=== PATIENT | female | born 1945 | race Caucasian/White ===

== ENCOUNTER → 2022-01-07 13:26 | Outpatient (CLI) | payer MEDICARE, BC, SELFPAY ==
[2022-01-07 14:41] LABS: Hemoglobin A1C% w Est Avg Glu 5.5 % (4.0-6.0)
[2022-01-07 14:49] LABS: Add Manual Diff / Slide Review NO; Basophils Absolute Auto 0 /uL (0-100); Basophils Percent Auto 0.6 % (0-2); Eosinophils Absolute Auto 100 /uL (0-450); Eosinophils Percent Auto 2.3 % (2-4); Hematocrit 37.7 % (36-46); Hemoglobin 12.8 g/dL (12.0-16.0); Lymphocytes Absolute Auto 1700 /uL (1100-4500); Lymphocytes Percent Auto 26.7 % (25-40); Mean Corpuscular HGB Conc 33.9 % (30-36); Mean Corpuscular Hemoglobin 31.6 PG (26-34); Mean Corpuscular Volume 93.3 fL (80-100); Monocytes Absolute Auto 500 /uL (0-900); Monocytes Percent Auto 7.3 % (3-14); Neutrophils Absolute Auto 4000 /uL (1500-7000); Neutrophils Percent Auto 63.1 % (50-75); Platelet Count 188 X10^3/uL (150-400); Red Blood Cell Count 4.04 X10^6/uL (4.0-5.2); Red Cell Distribution Width 14.1 % (11.6-14.8); White Blood Cell Count 6.3 X10^3/uL (4.5-11.0)
[2022-01-07 14:51] LABS: BUN Creatinine Ratio 30.6 (6-22); Blood Urea Nitrogen 22 mg/dL (7-17); Calcium 9.1 mg/dL (8.4-10.2); Carbon Dioxide 33 mmol/L (22-32); Chloride 101 mmol/L (98-107); Estimated Glomerular Filt Rate > 60 mL/min (>60); Glucose 104 mg/dL (80-110); HEMOLYSIS < 15 (0-50); Sodium 140 mmol/L (137-145)
[2022-01-07 15:45] LABS: Appearance Urine UA CLEAR; Bilirubin Urine UA NEGATIVE (NEGATIVE); Color Urine UA YELLOW; Glucose Urine UA NEGATIVE (Negative); Ketones Urine UA NEGATIVE (NEGATIVE); Leukocyte Esterase Urine UA NEGATIVE (NEGATIVE); Nitrite Urine UA NEGATIVE (Negative); Occult Blood Urine UA NEGATIVE (Negative); Protein Urine UA TRACE (Negative); Urobilinogen Urine UA 0.2 E.U./dL (0.2)
[2022-01-07 16:06] LABS: pH Urine UA 8.5 (4.5-8.0)
[2022-01-07 16:07] LABS: Bacteria Urine None Seen; Culture Indicated Urine Cult Not Indicated; RBC Urine 0-1/HPF (0-5/HPF); Squamous Epithelial Cell Urine 0-1 /HPF (0-5/HPF); WBC Urine 0-1/HPF (0-5/HPF)
== END ==
PROVIDERS: Family Provider Orthopaedic Surgery; PCP Family Medicine; Referring Provider Orthopaedic Surgery; Visit Provider Orthopaedic Surgery
DX: Z01.818 Encounter for other preprocedural examination (principal); R73.9 Hyperglycemia, unspecified; Z01.812 Encounter for preprocedural laboratory examination; N39.0 Urinary tract infection, site not specified
CPT/HCPCS: 36415; 80048; 81001; 83036; 85025; 93005; 93010

== ENCOUNTER 2023-05-22 12:17 | Emergency (ER) | payer MEDICARE, BC, SELFPAY ==
[2023-05-22 12:18] VITALS: BP 193/88; PULSE 77; RESP 17; TEMP 36.6; O2SAT 99; BMI 24.2
--- NOTE | 2023-05-22 12:35 | DI.RAD.S_ITS ---
PROCEDURE: XR KNEE LT 3V INDICATIONS: knee pain and swelling TECHNIQUE: 3 views of the knee were acquired. COMPARISON: None. FINDINGS: Bones: Patient is status post prior medial femoral tibial compartment arthroplasty. Alignment of left knee is anatomic. No gross hardware loosening or failure. No fractures or dislocations. Osteoarthritic changes are noted in lateral femoral tibial compartment and patellofemoral compartment. No suspicious bony lesions. Soft tissues: Moderate to large suprapatellar joint effusion is seen. No suspicious soft tissue calcifications. IMPRESSION: Prior medial femoral tibial compartment arthroplasty. No gross hardware loosening or failure. No acute fracture or dislocation. Moderate to large joint effusion. Moderate lateral femoral tibial compartment and patellofemoral compartment osteoarthritis. Dictated by: Bran Delarosa M.D. on 05/22/2023 at 13:03 Approved by: Bran Delarosa M.D. on 05/22/2023 at 13:03
--- NOTE | 2023-05-22 12:41 | DI.US.S_ITS ---
PROCEDURE: US PERIPH VENOUS LOW EXTREM LT INDICATIONS: left leg swelling behind knee TECHNIQUE: Real-time imaging, as well as color and pulse Doppler interrogation, were performed of the lower extremity deep veins from the inguinal ligament to the popliteal fossa, with documentation of the visualized calf veins. COMPARISON: None. FINDINGS: The common femoral, femoral, popliteal, and the visualized calf veins are normally compressible, and free of intraluminal thrombus. Color and pulse Doppler demonstrate normal phasic intraluminal flow. There is normal augmentation response to distal compression maneuver. IMPRESSION: No evidence of DVT in visualized left lower extremity veins. Dictated by: Bran Delarosa M.D. on 05/22/2023 at 13:34 Approved by: Bran Delarosa M.D. on 05/22/2023 at 13:35
--- NOTE | 2023-05-22 12:55 | PC.NURSE ---
Pain and swelling to distal side of left knee and back of knee.
--- NOTE | 2023-05-22 13:08 | ED_ITS ---
HPI - Extremity Problem <Rip Javed PA-C - Last Filed: 05/22/23 16:02> General Chief complaint: Extremity Problem,Nontraumatic Stated complaint: something wrong with knee swollen cant bend t-14 Time Seen by Provider: 05/22/23 13:01 Source: patient Mode of arrival: Ambulatory History of Present Illness HPI Narrative: This is a 78 old female presents emergency department due to left knee pain for the last week. She was not recall any acute injuries. She states that she does go the gym daily but does not recall any acute injuries. Does report some swelling to the lateral border of her left knee. Denies any fevers, decreased range of motion, or any other concerning signs or symptoms. Related Data Home Medications Medication Instructions Recorded Confirmed aspirin 81 mg tablet,delayed 81 mg PO DAILY 05/22/23 05/22/23 release Allergies Allergy/AdvReac Type Severity Reaction Status Date / Time Sulfa (Sulfonamide Allergy Verified 05/22/23 12:41 Antibiotics) Review of Systems <Rip Javed PA-C - Last Filed: 05/22/23 16:02> Review of Systems Narrative: GENERAL: Denies chills, fatigue, malaise, fever, sweats. HEENT: Denies sinus pain, ear pain, sore throat, difficulty swallowing, dizziness. RESPIRATORY: Denies dyspnea, cough, wheezing, hemoptysis, sputum. CARDIOVASCULAR: Denies chest pain, palpitations, orthopnea, edema, GASTROINTESTINAL: Denies nausea, vomiting, abdominal pain, diarrhea, constipation, melena. : Denies dysuria, frequency, incontinence, hematuria, urinary retention. MUSCULOSKELETAL: Reports left knee pain and swelling SKIN: Denies rash, skin lesions, or other NEUROLOGIC: Denies weakness, headache, numbness, change in speech, confusion, seizures, incoordination. PSYCHIATRIC: No concerning psychosocial issues. 12 point review of systems is negative except for those stated above Patient History <Rip Javed PA-C - Last Filed: 05/22/23 16:02> Social History Smoking Status: Never smoker Smoking Status: Never smoker alcohol intake frequency: other Substance Use Type: does not use Exam <ENEIDA Acosta Last Filed: 05/22/23 16:02> Narrative Exam Narrative: GENERAL: Well-developed patient, in mild distress. HEAD: Atraumatic. Normocephalic. EYES: Pupils equal round and reactive. Extraocular motions intact. No scleral icterus. No injection or drainage. ENT: Nose without bleeding, purulent drainage. Throat without erythema, tonsillar hypertrophy or exudate. Airway patent. NECK: Trachea midline. Non tender CARDIOVASCULAR: Regular rate and rhythm without murmurs, gallops, or rubs. RESPIRATORY: Clear to auscultation. Breath sounds equal bilaterally. No wheezes, rales, or rhonchi. GASTROINTESTINAL: Abdomen soft, non-tender, nondistended. EXTREMITIES: Mild tenderness to palpation to the lateral aspect of the left knee. Small amount of edema noted to the lateral aspect. No joint stiffness. Maintains good range of motion. Neurovascularly intact throughout. No tenderness to popliteal space. BACK: Nontender without deformity or crepitance. No flank tenderness. NEURO: AOx3. SKIN: No rash or erythema of visible areas Initial Vital Signs Initial Vital Signs: Vital Signs Temperature 98 F 05/22/23 12:18 Pulse Rate 77 05/22/23 12:18 Respiratory Rate 17 05/22/23 12:18 Blood Pressure 193/88 H 05/22/23 12:18 Pulse Oximetry 99 05/22/23 12:18 Oxygen Delivery Method Room Air 05/22/23 12:18 <Preston Witt MD - Last Filed: 06/05/23 12:55> Initial Vital Signs Initial Vital Signs: Vital Signs Temperature 98 F 05/22/23 12:18 Pulse Rate 77 05/22/23 12:18 Respiratory Rate 17 05/22/23 12:18 Blood Pressure 193/88 H 05/22/23 12:18 Pulse Oximetry 99 05/22/23 12:18 Oxygen Delivery Method Room Air 05/22/23 12:18 Course <Rip Javed PA-C - Last Filed: 05/22/23 16:02> Orders Ordered: ED Orders 05/22/23 12:35 XR knee LT 3V Stat 05/22/23 12:41 US periph venous low extrem lt Stat Vital Signs Vital signs: Vital Signs - 8 hr 05/22/23 12:18 Temperature 98 F Pulse Rate 77 Respiratory Rate 17 Blood Pressure 193/88 H Pulse Oximetry 99 Oxygen Delivery Method Room Air <Preston Witt MD - Last Filed: 06/05/23 12:55> Orders Ordered: ED Orders 05/22/23 12:35 XR knee LT 3V Stat 05/22/23 12:41 US periph venous low extrem lt Stat Vital Signs Vital signs: Vital Signs - 8 hr 05/22/23 12:18 Temperature 98 F Pulse Rate 77 Respiratory Rate 17 Blood Pressure 193/88 H Pulse Oximetry 99 Oxygen Delivery Method Room Air MDM - Extremity (Nontraumatic) <Rip Javed PA-C - Last Filed: 05/22/23 16:02> Imaging Data Extremity x-ray #1: Radiologist's Impression: [address] [address] XRay Report Signed Patient: Cecy Roland MR#: [id number] : 1945 Acct:[id number] Age/Sex: 78 / F Date of Service: 05/22/23 Loc: ED Accession Number: [id number] Procedure: XR knee LT 3V Ordering Provider: Rip Javed P.A-C PROCEDURE: XR KNEE LT 3V INDICATIONS: knee pain and swelling TECHNIQUE: 3 views of the knee were acquired. COMPARISON: None. FINDINGS: Bones: Patient is status post prior medial femoral tibial compartment arthroplasty. Alignment of left knee is anatomic. No gross hardware loosening or failure. No fractures or dislocations. Osteoarthritic changes are noted in lateral femoral tibial compartment and patellofemoral compartment. No suspicious bony lesions. Soft tissues: Moderate to large suprapatellar joint effusion is seen. No suspicious soft tissue calcifications. IMPRESSION: Prior medial femoral tibial compartment arthroplasty. No gross hardware loosening or failure. No acute fracture or dislocation. Moderate to large joint effusion. Moderate lateral femoral tibial compartment and patellofemoral compartment osteoarthritis. Dictated by: Bran Delarosa M.D. on 05/22/2023 at 13:03 Approved by: Bran Delarosa M.D. on 05/22/2023 at 13:03 US - DVT: Radiologist's Impression: [address] [address] Ultrasound Report Signed Patient: Cecy Roland MR#: [id number] : 1945 Acct:[id number] Age/Sex: 78 / F Date of Service: 05/22/23 Loc: ED Accession Number: [id number] Procedure: US periph venous low extrem lt Ordering Provider: Rip Javed P.A-C PROCEDURE: US PERIP VENOUS LOW EXTREM LT INDICATIONS: left leg swelling behind knee TECHNIQUE: Real-time imaging, as well as color and pulse Doppler interrogation, were performed of the lower extremity deep veins from the inguinal ligament to the popliteal fossa, with documentation of the visualized calf veins. COMPARISON: None. FINDINGS: The common femoral, femoral, popliteal, and the visualized calf veins are normally compressible, and free of intraluminal thrombus. Color and pulse Doppler demonstrate normal phasic intraluminal flow. There is normal augmentation response to distal compression maneuver. IMPRESSION: No evidence of DVT in visualized left lower extremity veins. Dictated by: Bran Delarosa M.D. on 05/22/2023 at 13:34 Approved by: Bran Delarosa M.D. on 05/22/2023 at 13:35 MDM Narrative Medical decision making narrative: MDM * differential diagnosis includes but not limited to osteoarthritis, fracture, ligament injury, septic arthritis, DVT * Prior records reviewed: Patient has not been to this emergency department in the past * My lab interpretation: None obtained * My imgaing interpretation: Knee x-ray shows evidence of effusion but no fracture. DVT ultrasound negative. * Clinical Decision Rules/Scores evaluated: None * Independent discussions with: None ED Course: This is a 78-year-old female presents emergency department complaining of acute onset left knee pain. She is not recall any acute injuries. On exam there was nothing concerning for any kind of septic arthritis or cellulitis. Ultrasound was ordered which was negative for DVT. X-ray negative for fractures or change in her hardware from her previous knee surgery. Did show a moderate to large effusion. Recommended rest, ice, compression, elevation and follow up with the established orthopedist for further evaluation and management. Shared Decision Making: Discussed plan with patient who is comfortable with the plan Social Considerations: None Disposition: Discharged to home Discharge Plan Departure Patient Disposition: Home Clinical Impression: Injury of knee Activity Restrictions/Additional Instructions: Thank you for coming to the [facility] Emergency Department today. As we discussed the knee x-ray showed no evidence of fractures or any movement of the hardware you having your knee. It did show a joint effusion which is fluid buildup usually happening after some kind of knee injury. I recommend elevation, ice, compression, and rest. You may use the knee immobilizer if it seems to help with your joint discomfort. You may use up to a 1000 mg of Tylenol every 8 hours. You may also use 400 mg ibuprofen every 6 hours as needed for the pain. You may use these concurrently. I also recommend the other therapies we discussed such as Biofreeze, and diclofenac gel. I do recommend he follow up with the primary care provider and orthopedist for possible MRI for further evaluation. I hope you feel better soon. Please follow up with your primary care provider within a week if your symptoms continue. If you do not have a primary care provider please contact the [facility] Resource line at [phone]. They will ask some questions about your medical history and help you get set up with a provider in the community. Prescriptions: No Action aspirin [Aspir-81] 81 mg Tablet,Delayed Release (Dr/Ec) 81 mg PO DAILY Referrals: Preston Wright DO [Primary Care Provider] - Stand Alone Forms: Patient Portal/API ED Sign-out <Preston Witt MD - Last Filed: 06/05/23 12:55> Cosign ED Attending Joshature Attestation: I was immediately available in the department for consultation. This documentation has been reviewed and I agree with assessment and plan. Supervised by Preston Witt MD
== END 2023-05-22 14:12 | disposition home or self-care (01) ==
PROVIDERS: Emergency Provider Physician Assistant Medical; Family Provider Orthopaedic Surgery; PCP Family Medicine
DX: S89.92XA Unspecified injury of left lower leg, initial encounter (principal); X58.XXXA Exposure to other specified factors, initial encounter
CPT/HCPCS: 73562; 93971; 99281; 99283

== ENCOUNTER → 2023-09-08 13:05 | Outpatient (CLI) | payer MEDICARE, BC, SELFPAY ==
--- NOTE | 2023-09-08 | DI.MRI.S_ITS ---
PROCEDURE: MR KNEE LT WO CON INDICATIONS: Presence of left artificial knee joint TECHNIQUE: Noncontrast sagittal PD fast spin echo and T2 fast spin echo with fat saturation, sagittal 3-D FLASH with fat saturation; coronal T1 spin echo and PD fast spin echo with fat saturation, and axial PD fast spin echo with fat saturation through the knee. COMPARISON: [facility], MR, KNEE WITHOUT CONTRAST, 05/12/2015, 19:49. [facility], CR, XR KNEE LT 3V, 05/22/2023, 12:46. [facility], CR, XR KNEE 4+ VIEWS LEFT, 08/30/2023, 16:10. FINDINGS: Image quality: Metal artifact is seen related to the medial compartment arthroplasty including areas of signal void, signal pile-up, and geometric distortion despite the use of metal artifact reduction techniques. Diagnostic information is obtained. Anterior cruciate ligament: Anterior cruciate ligament is not visualized and is likely chronically torn. Posterior cruciate ligament: Intact. Medial collateral ligament: Intact. Lateral collateral ligament: Intact. Lateral meniscus: Complex degenerative tearing is seen in the lateral meniscus with extrusion of the meniscal body beyond the femorotibial joint line. The anterior horn is not well visualized. Medial and lateral tendons: The semimembranosus tendon insertions appear intact. Visualized portions of the pes anserinus tendons appear normal. The popliteus tendon is intact. Iliotibial band appears normal. Anterior structures: The quadriceps and patellar tendons appear intact. No patellar subluxation. No femoral trochlear dysplasia or ventral trochlear prominence. Scarring is seen in the infrapatellar fat pad. Bones and cartilage: Postsurgical changes from a medial unicompartmental knee arthroplasty. No adjacent osseous edema is seen. Osteochondral fracture is seen at the far posterior portion of the lateral femoral condyle measuring approximately 13 x 15 mm with depression of the articular surface by up to 3 mm. Overlying cartilage fissuring is seen along the more anterior margin. There is a small amount of fluid deep to the osteochondral fragment that may indicate instability. Surrounding osseous edema is present. No additional area of trabecular bone injury is seen. Patellofemoral compartment demonstrates diffuse moderate to high-grade partial-thickness cartilage thinning and irregularity. Soft tissues: Moderate to large joint effusion is present. There is a large medial popliteal cyst with adjacent edema that may indicate prior cyst rupture. Ossified intracystic loose body is seen measuring up to 11 mm in size. The musculature surrounding the knee is normal in bulk. IMPRESSION: 1. Osteochondral fracture at the far posterior portion of the lateral femoral condyle with depression of the articular surface by up to 3 mm. Overlying cartilage fissuring is seen with fluid undercutting the in situ osteochondral fragment, which may indicate the fragment is unstable. Moderate surrounding osseous edema. 2. Postsurgical changes from medial unicompartmental arthroplasty. No acute hardware complication is seen. 3. 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 4. Complex degenerative tearing and maceration of the lateral meniscus, most notably at the anterior horn. There is extrusion of the meniscal body. 5. 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 6. Moderate to large joint effusion. Large medial popliteal cyst is seen with signs of prior cyst rupture as well as an 11 mm ossified intracystic loose body. Approved by: Michael Lopez M.D. on 09/08/2023 at 20:40
== END ==
LOC: MRI 13:08
PROVIDERS: Family Provider Orthopaedic Surgery; PCP Family Medicine; Referring Provider Orthopaedic Surgery; Visit Provider Orthopaedic Surgery
DX: S72.422A Displaced fracture of lateral condyle of left femur, initial encounter for closed fracture (principal); S83.272A Complex tear of lateral meniscus, current injury, left knee, initial encounter; S83.512A Sprain of anterior cruciate ligament of left knee, initial encounter; M22.42 Chondromalacia patellae, left knee; M23.42 Loose body in knee, left knee; M25.462 Effusion, left knee; M71.22 Synovial cyst of popliteal space [Baker], left knee; Z96.652 Presence of left artificial knee joint
CPT/HCPCS: 73721

== ENCOUNTER → 2023-09-25 11:05 | Outpatient (CLI) | payer MEDICARE, BC, SELFPAY ==
[2023-09-25 12:27] LABS: Add Manual Diff / Slide Review NO; Basophils Absolute Auto 0 /uL (0-100); Basophils Percent Auto 0.5 % (0-2); Eosinophils Absolute Auto 100 /uL (0-450); Hematocrit 38.6 % (36-46); Hemoglobin 12.9 g/dL (12.0-16.0); Lymphocytes Absolute Auto 1700 /uL (1100-4500); Lymphocytes Percent Auto 29.6 % (25-40); Mean Corpuscular HGB Conc 33.5 % (30-36); Mean Corpuscular Hemoglobin 31.6 PG (26-34); Mean Corpuscular Volume 94.3 fL (80-100); Monocytes Absolute Auto 500 /uL (0-900); Monocytes Percent Auto 8.2 % (3-14); Neutrophils Absolute Auto 3500 /uL (1500-7000); Neutrophils Percent Auto 59.7 % (50-75); Platelet Count 177 X10^3/uL (150-400); Red Blood Cell Count 4.09 X10^6/uL (4.0-5.2); Red Cell Distribution Width 14.1 % (11.6-14.8); White Blood Cell Count 5.8 X10^3/uL (4.5-11.0)
[2023-09-25 12:55] LABS: Erythrocyte Sedimentation Rate 10 MM/HR (0-20)
[2023-09-25 13:01] LABS: Hemoglobin A1C% w Est Avg Glu 5.4 % (4.0-6.0)
[2023-09-25 13:09] LABS: BUN Creatinine Ratio 29.3 (6-22); Blood Urea Nitrogen 17 mg/dL (7-17); Calcium 9.1 mg/dL (8.4-10.2); Carbon Dioxide 29 mmol/L (22-32); Chloride 104 mmol/L (98-107); Estimated Glomerular Filt Rate > 60 mL/min (>60); Glucose 89 mg/dL (80-110); HEMOLYSIS < 15 (0-50); Potassium 3.7 mmol/L (3.4-5.1); Sodium 139 mmol/L (137-145)
[2023-09-25 13:26] LABS: Appearance Urine UA CLEAR; Bilirubin Urine UA NEGATIVE (NEGATIVE); Color Urine UA YELLOW; Glucose Urine UA NEGATIVE (Negative); Ketones Urine UA NEGATIVE (NEGATIVE); Leukocyte Esterase Urine UA NEGATIVE (NEGATIVE); Nitrite Urine UA NEGATIVE (Negative); Occult Blood Urine UA NEGATIVE (Negative); Protein Urine UA NEGATIVE (Negative); Specific Gravity Urine UA <=1.005 (1.000-1.035); Urobilinogen Urine UA 0.2 E.U./dL (0.2)
[2023-09-25 13:29] LABS: pH Urine UA 5.5 (4.5-8.0)
[2023-09-25 13:41] LABS: Bacteria Urine None Seen; Culture Indicated Urine Cult Not Indicated; RBC Urine None Seen (0-5/HPF); Squamous Epithelial Cell Urine None Seen (0-5/HPF); Urine Volume 10mL (spun); WBC Urine None Seen (0-5/HPF)
== END ==
PROVIDERS: Family Provider Orthopaedic Surgery; PCP Family Medicine; Referring Provider Orthopaedic Surgery; Visit Provider Orthopaedic Surgery
DX: Z01.818 Encounter for other preprocedural examination (principal); R73.9 Hyperglycemia, unspecified; Z01.812 Encounter for preprocedural laboratory examination; N39.0 Urinary tract infection, site not specified
CPT/HCPCS: 36415; 80048; 81001; 83036; 85025; 85651; 93005

== ENCOUNTER 2023-11-02 06:19 | Inpatient (IN) | payer MEDICARE, BC, SELFPAY ==
[2023-10-23 09:35] VITALS: BMI 24.0
[2023-11-02] VITALS (13 sets, daily range): BP systolic 113–156; BP diastolic 46–104; PULSE 65–85; RESP 12–20; TEMP 36.1–36.2; O2SAT 92–100; BMI 23.3
--- NOTE | 2023-11-02 06:45 | DI.RAD.S_ITS ---
PROCEDURE: XR KNEE LT 1TO2V INDICATIONS: TKA TECHNIQUE: 2 view(s) of the knee acquired. COMPARISON: [facility], , XR KNEE LT 3V, 05/22/2023, 12:46. FINDINGS: Bones: Patient is status post knee joint arthroplasty. Hardware components are in expected positions. Visualized bony structures are intact. Soft tissues: Overlying postoperative changes are noted. IMPRESSION: Expected post-operative appearance of a knee arthroplasty. Dictated by: Justus Smith M.D. on 11/02/2023 at 16:07 Approved by: Justus Smith M.D. on 11/02/2023 at 16:07
[2023-11-02] MEDS: ACETAMINOPHEN 325 MG TABLET 975 MG PO (06:48)
[2023-11-02] MEDS: LACTATED RINGERS 1,000 ML 42 ML IV ×2 (06:48→09:59)
[2023-11-02] MEDS: CELECOXIB 200 MG CAPSULE 400 MG PO (06:58)
[2023-11-02] MEDS: VANCOMYCIN 1,000 MG/200 ML PIGGYBACK 200 MG IV (06:58)
--- NOTE | 2023-11-02 07:10 | P.OP_ITS ---
Operative Date/Time/Diagnoses Date of procedure: 11/02/23 Time of procedure: 08:00 Pre-op diagnosis: left knee osteochondral injury lateral femoral condyle, left knee medial uni, left knee OA Post-op diagnosis: same Procedure & Clinicians Procedure: Revision left total knee arthroplasty Same procedure as scheduled: Yes Indications: The patient has had progressively worsening left knee pain with a history of a left knee medial unicompartment arthroplasty. She did well for awhile but then developed incapacitating lateral knee pain. She had very extensive workup to rule out an infection which was all negative and a total body bone scan which did not suggest loosening. 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 She failed extensive conservative treatment and is brought to the operating room for revision. Non-operative management has failed and the patient has requested revision total knee replacement. The risks, benefits and alternatives to surgery were discussed with the patient prior to proceeding. Risks discussed included, but were not limited to, failure to relieve pain, stiffness, infection, nerve damage, deep venous thrombosis, pulmonary embolism, stroke, coma, heart attack, permanent paralysis and , as well as the potential need for eventual revision of the prosthetic. Surgeon: Regina Garcia Exterminator Helper Termite: Young Alcazar Anesthesia Type: General and Peripheral nerve block Operative Notes Findings: Osteonecrosis of the lateral femoral condyle, no evidence of infection, no evidence of unicompartment loosening, significant osteoporosis Closure Type: primary Specimen(s): other (Multiple cultures) Prosthetic devices, grafts, tissues, transplants, or devices: Garcia and Nephew size 4 journey BCS 2 femur, size 3 tibia, 35 x 7-1/2 mm patella, 12 x 100 mm tibial stem, size 13 polyethylene Estimated Blood Loss (mL): 250 Blood products transfused: none Tourniquet time (min): 120 Procedure in detail: The patient was seen in the pre-operative area, where the patient identified the left knee as the operative site and this was marked with my initials. The patient received pre-operative antibiotics, and was taken to the operating room and placed on the operative table in the supine position. After satisfactory anesthesia, a time broker out was performed. The left leg was encircled with a tourniquet about the proximal thigh, and the leg was prepared from the toes to the tourniquet with ChloroPrep in the usual fashion and draped through sterile drapes. The leg was elevated and exsanguinated with Eschmark bandage and the tourniquet inflated to [250] mmHg pressure. A PA was used during the procedure and was essential for intraoperative retraction and safe implantation of the components. The knee was approached through an approximately 18 cm incision centered over the patella and carried into the knee through a medial parapatellar arthrotomy. Portion of the medial and lateral meniscus was resected. Soft tissue was carefully mobilized around the patella the patella was measured with a caliper. Bone was resected from the patella and the patellar height was reconstituted with up an appropriate sized patellar component. A cover was then placed on the patella. A small amount of additional medial scar and soft tissue around the medial unicompartment arthroplasty and lateral meniscus was resected. Intraoperative cultures were sent including fluid, synovium and both tibial and femoral cultures after I removed the unicompartment components. I partially freed around the femoral and tibial component and then placed Cori Pins in the femur and tibia for navigation. The knee was meticulously mapped including doing special points for the epicondyle as well as the residual bone after component extraction. A stressed and nonstress range of motion was defined. We mapped the knee meticulously with a unicompartment arthroplasty in place. Next a combination of a TTS saw and multiple hand tools were used to meticulously remove the unicompartment arthroplasty without bone loss. The distal femoral cut was made. It was carefully navigated and it was noted that there did appear to be adequate distal femoral bone for good stability on the medial femoral condyle and lateral femoral condyle. The 5 in 1 block was placed and it was navigated during insertion. It looked like acceptable rotation and there was good stability on distal femoral cut and there was some resection of the posterior medial femoral condyle. There was no significant bony defects. It looked like an appropriate distal femoral cut and the cut was made without difficulty. The rotation was assessed and the appropriate size femoral guide was placed on the distal femur and finishing cuts were made. There was no evidence of notching. The posterior osteophytes and soft tissues were then removed. The posterior capsule was injected with part of a mixture of 60 ml 0.25% Marcaine mixed with 20 ml Exparel for post operative pain control. The remainder of this mixture was injected into the capsule and subcutaneous tissues during cement curing. The tibia was prepared by placing a PEG hole in the lateral bone and then carefully navigating the guide and pinning it to the tibia. It looked like I had under cut or really not done a good skim cut on the medial bone and I made a plan to drop the tibial resection 1 mm in order to have better medial tibial bony contact. The additional mm of bone was resected using the bone bur all function on the robotic navigation system. The rotation was assessed. The patient was placed in extension residual medial and lateral meniscus as well as any residual bone was carefully resected. [No] additional tibia was resected. Hemostasis was achieved especially posteriorly. Additional local was injected into the posterior capsule. The femoral component was trial was placed and the notch was finished. Trial tibial and femoral components were then placed and the knee placed through a range of motion. Range of motion was [0-130], with good stability throughout the range. The trials were then removed, and the tibia was finished. She had very soft bone overall. I decided to do 100 mm stem on the tibia in order to improve the stability of the tibial component. A 12 x 100 stem was used and the bone was prepared for that. The bone was prepared with pulsatile lavage, and dried with a sponge. Cement was applied and the final prosthetics placed. Excess cement was removed during and after cement curing. A brief Betadine soak was performed. After confirming there was no extruded cement posteriorly, the final tibial insert was placed. The knee was copiously irrigated and the tourniquet deflated. Hemostasis was obtained with the Bovie cautery. The capsule was closed with interrupted # 1 Vicryl suture. The subcutaneous layer was closed with barbed sutures, and the skin with a running 3-0 V-Lock suture and skin flores. A nicole dressing was applied and the patient was taken to recovery having tolerated the procedure well. Complications: none Post-operative Condition: stable Disposition: Acute Care Plan for aftercare: The patient will be maintained on a standard total knee replacement protocol with weight bearing as tolerated. The patient will receive aspirin and sequential compression devices for DVT prophylaxis. The patient will be discharged home when safe for the home environment.
--- NOTE | 2023-11-02 07:10 | PM.PREOP ---
Pre-operative Note Interval Note History & Physical reviewed/Exam performed by Physician: Yes Changes to H&P: No
[2023-11-02] MEDS: CEFAZOLIN 2 GM/100 ML PREMIX 100 ML IV ×2 (08:00→16:20)
[2023-11-02] MEDS: TRANEXAMIC ACID 1,000 MG VIAL 1000 MG INJ ×2 (08:10→11:05)
[2023-11-02] MEDS: BUPIVACAINE 0.25% (PF) 60 ML, EPINEPHrine 0.3 MG INJ (08:44)
[2023-11-02] MEDS: BUPIVACAINE LIPOSOME 266 MG/20 ML VIAL INJ (08:44)
--- NOTE | 2023-11-02 08:49 | SUR.OPER ---
Supine on padded OR bed. Pillow under head, arms secured on padded armboards <90 degree abduction. Safety belt across torso. Non-operative leg secured with tape over blanket over lower leg. Operative leg secured in DeMayo/Sukhjinder/Nathe positioner. Foam padded brace at thigh of operative leg.
[2023-11-02] MEDS: LACTATED RINGERS 1,000 ML 100 ML IV (12:41)
--- NOTE | 2023-11-02 16:27 | PT.IIE ---
Current Diagnoses Idiopathic aseptic necrosis of unspecified femur (11/02/23) Presence of unspecified artificial knee joint (11/02/23) Surgery Performed Operation Date: 11/02/23 07:45 Actual Procedures p Total Knee Arthroplasty Revision - Robot uni to total(Left) - Regina Garcia MD Surgical History (Last Reviewed 11/02/23 @ 06:46 by María Chung, RN) History of gynecologic surgery (1997) Hx of appendectomy (2009) Hx of arthroscopy of left knee (2008) Hx of bilateral cataract extraction Hx of dilation and curettage (2014) S/P left unicompartmental knee replacement (2021) S/P right unicompartmental knee replacement (2014) Medical History (Last Reviewed 11/02/23 @ 06:46 by María Chung, RN) Aseptic necrosis of lateral femoral condyle BCC (basal cell carcinoma) Depression HTN (hypertension) Hypoglycemia Osteoporosis PAF (paroxysmal atrial fibrillation) Sensitive skin SVT (supraventricular tachycardia) Physical Therapy Inpatient Evaluation/Re-Eval M1 PT/OT-IP Prior Functional Status Start: 11/02/23 15:31 Freq: NEEDED Status: Active Protocol: Document 11/02/23 15:30 MB (Rec: 11/02/23 16:26 MB [id number]) Medical Review Prior Functional Status Medical History Reviewed Yes Diet/Fluid Consistency Regular Communication WNLs Mobility and Gait I Activities of Daily Living and IADL's I Social History Household Members spouse Living Arrangements House Number of Floors (Floors) Two Floors Number of Stairs To Enter/Railing? Pt can stay on main level and no steps to enter Home Environment Standard Height Toilet,Walk in Shower,Tub/Shower Home Equipment Front Wheel Walker Employment Status Retired M2 PT-IP Current Condition Start: 11/02/23 15:31 Freq: NEEDED Status: Active Protocol: Document 11/02/23 15:30 MB (Rec: 11/02/23 16:26 MB [id number]) Physical Therapy Current Condition Current Condition Evaluation Date 11/02/23 Treatment Diagnosis L TKA M3 PT-IP Subjective Start: 11/02/23 15:31 Freq: NEEDED Status: Active Protocol: Document 11/02/23 15:30 MB (Rec: 11/02/23 16:26 MB [id number]) Subjective Physical Therapy Visit Type Type Initial Evaluation Visit Start Time 15:30 Visit Stop Time 16:15 Number of GEOMORPHOLOGIST Visits 0 Physical Therapy Visit Comments Patient Comments Pt states she is doing well and does not have pain on pain medications. Therapy Pain Assessment Pain When Pain Assessed At Rest Pain Present Pain Present Denied Pain M4 PT-IP Mobility and Gait Start: 11/02/23 15:31 Freq: NEEDED Status: Active Protocol: Document 11/02/23 15:30 MB (Rec: 11/02/23 16:26 MB [id number]) PT-Bed Mobility Assessment Supine to Sit Supine to Sit Independent Scooting Scooting to Edge of Bed Independent Scooting Up and Down in Bed Independent PT-Transfer Assessment Sit to and From Stand Sit to and from Stand Independent,Standby Assistance Equipment Transfer Assistive Device Gait Belt,Front Wheeled Walker Orthotic/Prosthetic Devices or Brace: No Transfers Transfer Destination Chair,Toilet Transfer Technique Ambulation Transfer Ability Level of Assist Independent,Standby Assistance Comments Mobility Comments Pt mobilizes well and is not dizzy. BP and HR in LUE are: supine 106/52, 63; standing 125/53, 75 and PT cannot check again as pt needs to go to the restroom. Pt tends to push up from the RW Gait Assessment Gait Gait Assistance Required: Independent,Standby Assistance Distance (Feet) 150 Able to Maintain Weight Bearing Status Yes During Gait Assistive Devices Assistive Device Gait Belt,Front Wheeled Walker Orthotic/Prosthetic Devices or Brace: No Gait Deviations General Gait Pattern Antalgic,Decreased Stride Length,Decreased Feet Clearance,Flexed Trunk Factors Limiting Gait Function Factors Limiting Gait Function Decreased Strength,Limited Range of Motion Comments Gait Comments Pt mobilizes well post-op, slow isabel and she has step- through gait pattern PT-Balance Assessment Sitting Balance and Reactions Static Sitting Balance Ability Normal Dynamic Sitting Balance Ability Normal Standing Balance and Reactions Static Standing Balance Ability Good Dynamic Standing Balance Ability Good Device Used RW M5 PT-IP Objective Assessments Start: 11/02/23 15:31 Freq: NEEDED Status: Active Protocol: Document 11/02/23 15:30 MB (Rec: 11/02/23 16:26 MB [id number]) Orientation Orientation/Cognition Level of Alertness Alert Orientation Name,Age,Birthday,Month,Date, Year,Day of Week,Place, Situation Language Function Ability No Deficits Noted Safety Awareness Decreased Safety Awareness Memory Description No Deficits Noted Comments Pt reports she does use RW to push up from, especially at the toilet, and cues to try to push up from surface she is standing from Gross Range of Motion Upper Extremity ROM Impairments Defer to OT Lower Extremity ROM Assessment Left Impaired Strength Comments Strength Comments LLE knee ROM grossly 20-90 deg Other Assessments Other Other Assessments Some edema LLE M6 PT-IP Treatment Start: 11/02/23 15:31 Freq: NEEDED Status: Active Protocol: Document 11/02/23 15:30 MB (Rec: 11/02/23 16:26 MB [id number]) Physical Therapy Treatment Exercises Exercises Ankle Pumps,Gluteal Sets,Quad Sets,Heel Slides Education Education Provided Weight Bearing Status,Post-Op Packet,Safety M7 PT-IP Assessment and Plan Start: 11/02/23 15:31 Freq: NEEDED Status: Active Protocol: Document 11/02/23 15:30 MB (Rec: 11/02/23 16:26 MB [id number]) PT Summary Assessment and Plan Potential Rehabilitation Potential Excellent Status of Condition at Evaluation Stable Summary Impairments ROM,Strength Progress Towards Goals Safe For Discharge Assessment Summary Pt is a 78 y/o female who is doing well post-op L TKA. Her is present for evaluation. Pt is I with bed mobility and SBA to I for transfers and gait. She mostly needs SBA d/t pushing up from the walker and PT manages IV pole. She has LLE edema and no current pain. She has OPPT set-up and has RW at home and for assistance. Talked about benefits of tub bench. Frequency of Treatment Frequency Of Treatment Discharge Weight Bearing Status Weight Bearing Status Weight Bear as Tolerated Recommendations To Nursing Amount of Assist Needed Standby Assistance Discharge Recommendations PT Discharge Recommendations Home with Assistance, Outpatient PT Transportation Needs at Discharge Private Vehicle
--- NOTE | 2023-11-02 16:35 | OT.IP.EVAL ---
Current Diagnoses Idiopathic aseptic necrosis of unspecified femur (11/02/23) Presence of unspecified artificial knee joint (11/02/23) Surgery Performed Operation Date: 11/02/23 07:45 Actual Procedures p Total Knee Arthroplasty Revision - Robot uni to total(Left) - Regina Garcia MD Past Medical History (Last Reviewed 11/02/23 @ 06:46 by María Chung, RN) Aseptic necrosis of lateral femoral condyle BCC (basal cell carcinoma) Depression HTN (hypertension) Hypoglycemia Osteoporosis PAF (paroxysmal atrial fibrillation) Sensitive skin SVT (supraventricular tachycardia) Surgical History (Last Reviewed 11/02/23 @ 06:46 by María Chung, RN) History of gynecologic surgery (1997) Hx of appendectomy (2009) Hx of arthroscopy of left knee (2008) Hx of bilateral cataract extraction Hx of dilation and curettage (2014) S/P left unicompartmental knee replacement (2021) S/P right unicompartmental knee replacement (2014) Occupational Therapy Inpatient Evaluation/Re-Eval M1 PT/OT-IP Prior Functional Status Start: 11/02/23 16:44 Freq: NEEDED Status: Active Protocol: Document 11/02/23 16:44 [facility] (Rec: 11/02/23 17:05 [facility] [id number]) Medical Review Prior Functional Status Medical History Reviewed Yes Diet/Fluid Consistency Regular Communication WNLs Mobility and Gait I Activities of Daily Living and IADL's I Social History Household Members spouse Living Arrangements House Number of Floors (Floors) Two Floors Number of Stairs To Enter/Railing? Pt can stay on main level and no steps to enter Home Environment Standard Height Toilet,Walk in Shower,Tub/Shower Home Equipment Front Wheel Walker,Hand Held Shower Employment Status Retired M2 OT-IP Current Condition Start: 11/02/23 16:44 Freq: Status: Active Protocol: Document 11/02/23 16:44 [facility] (Rec: 11/02/23 17:05 [facility] [id number]) Occupational Therapy Current Condition Current Condition Evaluation Date 11/02/23 Treatment Diagnosis S/P converting uni to left tricompartment arthroplasty Diagnosis Onset Date 11/02/23 Weight Bearing Status Weight Bearing Status Weight Bear as Tolerated M3 OT- IP Subjective and Pain Start: 11/02/23 16:44 Freq: Status: Active Protocol: Document 11/02/23 16:44 [facility] (Rec: 11/02/23 17:05 [facility] [id number]) OT- Subjective Occupational Therapy Visit Type Type Initial Evaluation Visit Start Time 16:15 Visit Stop Time 16:35 Occupational Therapy Visit Comments Patient Comments Pt agreed to work with OT and pt's in the room. Patient/Caregiver Goals TO go home. OT Pain Assessment Pain When Pain Assessed At Rest Pain Present Pain Present Denied Pain M4 OT- IP ADL's Start: 11/02/23 16:44 Freq: Status: Active Protocol: Document 11/02/23 16:44 [facility] (Rec: 11/02/23 17:05 [facility] [id number]) OT [id number] Comments OT Self-Feeding Comments Not at meal time. OT ADL-Grooming Comments OT Grooming Comments No issues. OT ADL-Oral Care Comments Oral Care Comments NO issues. OT ADL-Dressing Comments OT Dressing Comments Pt not wanting to get dressed until for sure being discharged. Educated pt on dressing the LLE first and take out last. Pt states not needing any LB dressing equipment as she is flexible, but her to assist as needed. OT ADL-Toileting Comments OT Toileting Comments Suggested to get a BSC to increase ease to stand as pushing up on the FWW in not safe unless her holds onto it. Also to wear a pad so not having to hurry to the bathroom. OT ADL-Bathing Comments OT Bathing Comments Suggested best to have a shower chair to use at home and to be sure to cover the dressing while showering. Pt states thinking about just sponging off at this time initially. M5 OT- IP IADL's Start: 11/02/23 16:44 Freq: Status: Active Protocol: Document 11/02/23 16:44 [facility] (Rec: 11/02/23 17:05 [facility] [id number]) OT-Instrumental Activities of Daily Living Deficits IADL Deficits Identified Deficits Home Safety Awareness Awareness of Need for Assistance at Home Good Awareness Ability to Problem Solve Emergency Able to Problem Solve Situations Meal Preparation Meal Preparation Comments Pt's to assist. Metal Polisher And Buffer Apprentice Metal Polisher And Buffer Apprentice Comments Pt's to assist. M6 OT- IP Functional Cognition Start: 11/02/23 16:44 Freq: Status: Active Protocol: Document 11/02/23 16:44 [facility] (Rec: 11/02/23 17:05 [facility] [id number]) Cognitive Factors Limiting Selfcare Function Cognitive Ability Level of Alertness Alert Patient Orientation Name,Age,Birthday,Month,Date, Year,Day of Week,Place, Situation Attention Span Ability Capable of Focused Attention, Capable of Sustained Attention Ability to Follow Commands Able to Follow Multi-Step Commands Cognitive Comments Cognitive Assessment Comments Intact. OT- Vision and Hearing OT- Hearing Assessment OT- Hearing Assessment WFL OT- Vision Assessment Visual Acuity Glasses All The Time M7 OT- IP Mobility and Balance Start: 11/02/23 16:44 Freq: Status: Active Protocol: Document 11/02/23 16:44 [facility] (Rec: 11/02/23 17:05 [facility] [id number]) OT-Transfer Assessment Comments Mobility Comments Pt is independent with mobility with FWW. OT- Balance Assessment Sitting Balance and Reactions Static Sitting Balance Ability Normal Dynamic Sitting Balance Ability Normal Standing Balance and Reactions Static Standing Balance Ability Normal M8 OT- IP Objective Assessments Start: 11/02/23 16:44 Freq: Status: Active Protocol: Document 11/02/23 16:44 [facility] (Rec: 11/02/23 17:05 [facility] [id number]) OT Gross Range of Motion Upper Extremity Range of Motion Assessment Within Functional Limits OT Strength Upper Extremity Strength Assessment Within Functional Limits M9 OT- IP Assessment and Plan Start: 11/02/23 16:44 Freq: Status: Active Protocol: Document 11/02/23 16:44 [facility] (Rec: 11/02/23 17:05 [facility] [id number]) OT Summary Assessment and Plan Potential Rehabilitation Potential Excellent Analytic Complexity at Evaluation Low Summary OT Impairments Functional Mobility,Toileting, Bathing,Toilet Transfers, Shower Transfers Progress Towards Goals Progressing Toward Goals Assessment Summary Pt low complexity and doing well and able to go over safety for toileting and bathing needs and benefit to get a BSC and shower chair. Pt to go home with her to assist when medically stable. Goals Dressing Goal Independent Toileting Goal Independent Bathing Goal Independent Toilet Transfer Goal Independent Shower Transfer Goal Independent Days to Meet Goals 2 Frequency of Treatment Frequency Of Treatment Once a Day Treatment Plan OT Treatment Plan ADL Training,Functional Mobility,Patient/Family Education,Discharge Planning Discharge Recommendations OT Discharge Recommendations Home with Assistance, Outpatient PT Transportation Needs at Discharge Private Vehicle
== END 2023-11-02 20:20 | disposition home or self-care (01) | DRG 467 ==
PROVIDERS: Admitting Provider Orthopaedic Surgery; Family Provider Orthopaedic Surgery; PCP Family Medicine; Referring Provider Orthopaedic Surgery; Visit Provider Orthopaedic Surgery
PROC: 0SPD0LZ Removal of Medial Unicondylar Synthetic Substitute from Left Knee Joint, Open Approach (ICD-10-PCS; principal; 2023-11-02 07:45)
DX: M17.12 Unilateral primary osteoarthritis, left knee (principal); M87.852 Other osteonecrosis, left femur; M25.462 Effusion, left knee; X58.XXXA Exposure to other specified factors, initial encounter; S89.82XA Other specified injuries of left lower leg, initial encounter; M81.0 Age-related osteoporosis without current pathological fracture; Z96.652 Presence of left artificial knee joint
CPT/HCPCS: 64447; 73560; 87070; 87075; 87176; 87205; 97110; 97116; 97161; 97165; 97535; C1776; C9290; J0171; J0690; J1100; J1170; J2250; J2405; J2704; J3010